=== PATIENT | male | born 1985 | race Caucasian/White ===

== ENCOUNTER 2019-01-15 19:23 | Emergency (ER) | payer SELFPAY ==
[~2019-01-15] VITALS: Ht 180.3 cm; Wt 77.0 kg
[2019-01-15] MEDS ORDERED: CEPH-572 PO (20:01)
[2019-01-15] MEDS ORDERED: SULF1TAB49 PO (20:01)
[2019-01-15 20:11] VITALS: BP 172/98
== END 2019-01-15 20:12 | disposition home or self-care (01) ==
LOC: ER 19:23
DX: M79.644 Pain in right finger(s) (principal); Z88.5 Allergy status to narcotic agent; Z79.2 Long term (current) use of antibiotics; Z79.899 Other long term (current) drug therapy
CPT/HCPCS: 99283

== ENCOUNTER 2019-03-28 23:26 | Emergency (ER) | payer SELFPAY ==
[~2019-03-28] VITALS: Ht 180.3 cm; Wt 65.0 kg
[2019-03-29] MEDS ORDERED: LIDOcaine 1% w/EPI 1:200,000 injection 10mL vial IM ONE (00:30)
[2019-03-29] MEDS ORDERED: LIDOcaine 1% W/epiNEPHrine 1:100,000 20ml vial IJ ONE (00:40)
[2019-03-29 01:41] VITALS: BP 149/94
[2019-03-29] MEDS ORDERED: HYDR-3965 PO (01:43)
[2019-03-29] MEDS ORDERED: SULF1TAB49 PO (01:43)
[2019-03-29] MEDS ORDERED: CEPH500C5 PO (01:43)
== END 2019-03-29 01:50 | disposition home or self-care (01) ==
LOC: ER 23:33
DX: N49.2 Inflammatory disorders of scrotum (principal); Z88.5 Allergy status to narcotic agent; Z79.899 Other long term (current) drug therapy
CPT/HCPCS: 54700; 99284

== ENCOUNTER 2019-05-21 15:28 | Emergency (ER) | payer MEDICAID, OTHER ==
[~2019-05-21] VITALS: Ht 180.3 cm; Wt 75.7 kg
[2019-05-21 15:47] VITALS: BP 133/93
[2019-05-21] MEDS ORDERED: ketorolac tromethamine 15mg/ml inj. IM ONE (17:15)
[2019-05-21] MEDS ORDERED: IBUP-1984 PO (17:21)
== END 2019-05-21 17:53 | disposition home or self-care (01) ==
LOC: ER 15:28
DX: M25.462 Effusion, left knee (principal); Z98.890 Other specified postprocedural states; Z88.5 Allergy status to narcotic agent; Z79.899 Other long term (current) drug therapy; X50.1XXA Overexertion from prolonged static or awkward postures, initial encounter; Y93.89 Activity, other specified; Y92.89 Other specified places as the place of occurrence of the external cause; Y99.8 Other external cause status
CPT/HCPCS: 29505; 73564; 96372; 99283; J1885

== ENCOUNTER 2019-11-14 08:47 | Emergency (ER) | payer MEDICARE, MEDICAID ==
[~2019-11-14] VITALS: Ht 182.9 cm; Wt 49.1 kg
[~2019-11-14 08:47] MED LIST: LIDOcaine 1% W/epiNEPHrine 1:100,000 20ml vial ONE
[2019-11-14 08:48] VITALS: BP 151/102
[2019-11-14] MEDS ORDERED: TETanus/Pertussis (Acell)/Diphther VAC/PF (Tdap-Adult) 0.5ml syringe IMVAC ONE (10:45)
[2019-11-14] MEDS ORDERED: SULF-15 PO (11:38)
== END 2019-11-14 11:48 | disposition home or self-care (01) ==
LOC: ER 08:47
DX: L02.11 Cutaneous abscess of neck (principal); Z98.890 Other specified postprocedural states; Z88.5 Allergy status to narcotic agent; Z79.2 Long term (current) use of antibiotics
CPT/HCPCS: 10060; 90471; 90715; 99283; 99284

== ENCOUNTER 2022-12-25 13:39 | Emergency (ER) | payer BC, MEDICAID ==
[~2022-12-25] VITALS: Ht 182.9 cm; Wt 79.5 kg
[2022-12-25 14:21] VITALS: BP 166/101
[2022-12-25] MEDS ORDERED: HYDROcodone/acetaminophen 5mg/325mg tablet PO ONE (14:35)
[2022-12-25] MEDS ORDERED: LIDOcaine 1% W/epiNEPHrine 1:100,000 20ml vial IJ ONE (14:35)
[2022-12-25] MEDS ORDERED: bacitracin 15gm ointment TP ONE (14:35)
[2022-12-25] MEDS ORDERED: HYDR-3965 PO (17:03)
[2022-12-25] MEDS ORDERED: CEPH-585 PO (17:03)
== END 2022-12-25 17:34 | disposition home or self-care (01) ==
LOC: ER 13:39
DX: L02.411 Cutaneous abscess of right axilla (principal); Z88.5 Allergy status to narcotic agent
CPT/HCPCS: 10060; 99283; A6266; A6449

== ENCOUNTER 2023-02-14 16:33 | Emergency (ER) | payer BC, MEDICAID ==
[~2023-02-14] VITALS: Ht 182.9 cm; Wt 82.7 kg
[~2023-02-14 16:33] MED LIST changes: +CEPH-585 PO; -LIDOcaine 1% W/epiNEPHrine 1:100,000 20ml vial ONE
[2023-02-14 16:48] VITALS: BP 146/89; PULSE 104; RESP 20; TEMP 98.6; O2SAT 96
[2023-02-14] MEDS ORDERED: CEPH-585 PO (17:26)
[2023-02-14] MEDS ORDERED: SULF1TAB49 PO (17:26)
== END 2023-02-14 17:48 | disposition home or self-care (01) ==
LOC: ER 16:33
DX: L02.412 Cutaneous abscess of left axilla (principal); Z88.5 Allergy status to narcotic agent; Z79.2 Long term (current) use of antibiotics
CPT/HCPCS: 99283

== ENCOUNTER 2023-11-02 17:55 | Emergency (ER) | payer BC, MEDICAID ==
[~2023-11-02] VITALS: Ht 177.8 cm; Wt 67.0 kg
[2023-11-02] MEDS ORDERED: BENCRM TOP (18:18)
[2023-11-02] MEDS ORDERED: KEN0.1O TOP (18:18)
[2023-11-02] MEDS ORDERED: PRED20TA PO (18:18)
[2023-11-02] MEDS ORDERED: DIPH25CA83 PO (18:18)
[2023-11-02] MEDS: famotidine 20mg tablet PO ONE (18:52)
[2023-11-02] MEDS: diphenhydrAMINE 50 mg/ml inj IM ONE (18:53)
[2023-11-02] MEDS: dexamethasone sod phosphate 10mg/ml inj IM STA (18:53)
[2023-11-02 19:02] VITALS: BP 132/86; PULSE 85; RESP 19; TEMP 98; O2SAT 98
== END 2023-11-02 19:03 | disposition home or self-care (01) ==
LOC: ER 17:56
DX: L23.7 Allergic contact dermatitis due to plants, except food (principal); Z88.5 Allergy status to narcotic agent; Z79.2 Long term (current) use of antibiotics
CPT/HCPCS: 96372; 99284; J1100; J1200

== ENCOUNTER 2023-11-16 09:54 | Emergency (ER) | payer BC, MEDICAID ==
[~2023-11-16] VITALS: Ht 180.3 cm; Wt 84.0 kg
[~2023-11-16 09:54] MED LIST changes: +BENCRM TOP; +DIPH25CA83 PO
[2023-11-16] MEDS: CefTRIAXone 2gm/D5W 50ml BAG 50 ML IV ONE (15:35)
[2023-11-16 15:49] LABS: BASOPHILS % (AUTO) 0.3 % (0-1); EOSINOPHILS # (AUTO) 0.6 X10'3 (0-0.9); HEMATOCRIT 40.2 % (42.0-52.0); HEMOGLOBIN 13.5 g/dl (14.0-17.9); LYMPHOCYTES # (AUTO) 0.9 X10'3 (1.1-4.8); LYMPHOCYTES % (AUTO) 8.2 % (21-51); MEAN CORPUSCULAR HEMOGLOBIN 29.1 PG (27.0-31.0); MEAN CORPUSCULAR HGB CONC 33.5 g/dL (33.0-36.5); MEAN CORPUSCULAR VOLUME 86.8 FL (78-98); MEAN PLATELET VOLUME 8.1 FL (7.4-10.4); MONOCYTES # (AUTO) 1.1 X10'3 (0-0.9); NEUTROPHILS # (AUTO) 8.7 X10'3 (1.8-7.7); NEUTROPHILS % (AUTO) 76.5 % (42-75); PLATELET COUNT 213 X10'3 (140-440); RED BLOOD COUNT 4.63 X10'6 (4.70-6.10); RED CELL DISTRIBUTION WIDTH 15.3 % (11.5-14.5); WHITE BLOOD COUNT 11.4 X10'3 (4.5-11.0)
[2023-11-16 16:18] LABS: ALBUMIN 2.9 G/DL (3.4-5.0); ANION GAP 1 (8-16); BLOOD UREA NITROGEN 9 MG/DL (7-18); BUN/CREATININE RATIO 8.9 (10.0-20.0); CALCIUM 8.4 MG/DL (8.5-10.1); CHLORIDE 101 MMOL/L (99-107); CREATININE 1.01 MG/DL (0.60-1.10); GLUCOSE 75 MG/DL (70-104); MAGNESIUM 2.3 MG/DL (1.5-2.4); POTASSIUM 4.1 MMOL/L (3.5-5.1); PRO BRAIN NATRIURETIC PEPTIDE 35 PG/ML (0-125); SODIUM 135 MMOL/L (135-145); TOTAL CARBON DIOXIDE 33.2 MMOL/L (24-32); eCRCL 104 ML/MIN; eGFR 82 ML/MIN
[2023-11-16 16:34] LABS: BILIRUBIN,URINE NEGATIVE (Neg); CLARITY,URINE SLIGHTLY CLOUDY (Clear); COLOR,URINE YELLOW (Yellow); GLUCOSE, URINE 100 mg/dl (Neg); KETONES,URINE NEGATIVE (Neg); LEUKOCYTE ESTERASE ,URINE MODERATE (Neg); NITRITES, URINE POSITIVE (Neg); OCCULT BLOOD,URINE NEGATIVE (Neg); PH,URINE 6.5 (4.8-8.0); PROTEIN,URINE TRACE mg/dl (Neg)
[2023-11-16 16:46] LABS: UA COLLECTION TYPE CLN CATCH MIDSTREAM
[2023-11-16 16:56] LABS: SQUAMOUS EPITHELIAL CELL,UR NONE SEEN /LPF (FEW); WBC,URINE TNTC /HPF (0-4)
[2023-11-16 16:57] LABS: WBC CLUMPS,URINE FEW /HPF (NEGATIVE)
[2023-11-16 17:00] LABS: BACTERIA,URINE 4+ /HPF (Neg); RBC,URINE NONE SEEN /HPF (0-2)
[2023-11-16 17:08] LABS: URINE AMPHETAMINE SCREEN POSITIVE (Neg); URINE BARBITUATE SCREEN NEGATIVE (Neg); URINE BENZODIAZEPINES SCREEN NEGATIVE (Neg); URINE CANNABINOID SCREEN NEGATIVE (Neg); URINE COCAINE SCREEN NEGATIVE (Neg); URINE METHADONE SCREEN NEGATIVE (Neg); URINE OPIATE SCREEN NEGATIVE (Neg); URINE PHENCYCLIDINE SCREEN NEGATIVE (Neg)
[2023-11-16] MEDS ORDERED: CEPH250T PO (17:51)
[2023-11-16] MEDS ORDERED: METR375C2 PO (17:51)
[2023-11-16] MEDS: CefTRIAXone/D5W-Rocephin 1gm 50 ML IV ONE (18:06)
[2023-11-16] MEDS: azithromycin 250mg tablet PO ONE (18:06)
[2023-11-16 18:15] VITALS: BP 154/72; PULSE 86; RESP 18; TEMP 98.2; O2SAT 99
== END 2023-11-16 18:19 | disposition home or self-care (01) ==
LOC: ER 09:54
DX: F15.10 Other stimulant abuse, uncomplicated (principal); A46 Erysipelas; N39.0 Urinary tract infection, site not specified; Z88.8 Allergy status to other drugs, medicaments and biological substances
CPT/HCPCS: 36415; 71045; 80048; 80305; 81001; 83605; 83735; 83880; 84145; 84484; 85025; 87040; 87077; 87088; 87186; 93005; 96365; 96376; 99285; J0696; 96366

== ENCOUNTER 2024-12-11 20:30 | Emergency (ER) | payer BC, MEDICAID ==
[~2024-12-11] VITALS: Ht 177.8 cm; Wt 73.3 kg
[~2024-12-11 20:30] MED LIST changes: -CEPH-585 PO; +METR375C2 PO
[2024-12-11 20:32] VITALS: BP 133/88; PULSE 99; RESP 16; TEMP 98.1; O2SAT 96
[2024-12-11] MEDS ORDERED: PRED20TA PO (22:00)
--- NOTE | 2024-12-11 22:00 | Physician Documentation ---
History of Present Illness ~ Chief Complaint: Rash Stated Complaint: POISON OAK Time Seen by MD: 21:56 Primary Medical Doctor: [facility] This is a 39-year-old male who presents with patchy rash to multiple areas of his body after working in poison oak today, patient reports history of allergy to poison oak. Patient reports rashes to all areas of body including genitalia though excluding face. Medication Reconciliation Allergies: Coded Allergies: morphine (Verified Allergy, Unknown, MY BODY SWELLS UP, 12/11/24) Scheduled Diphenhydramine Hcl (Benadryl), 1 CAP PO HS Diphenhydramine Hcl/Zinc Acet (Benadryl 2% Cream), 1 APPLIC TOP Q8H Metronidazole (Flagyl), 1 CAP PO Q12H Prednisone* (Prednisone*), 3 TAB PO DAILY Past Medical History Past Medical History: No Pertinent History Past Surgical History: orthopedic surgeries Alcohol Use: None Drug Use: none Lives with: Family Lives In: Home Occupation: employed Review of Systems ROS Rash as stated above in the HPI, otherwise all systems are reviewed and negative. Physical Exam Vital Signs: Temperature: 98.1, Source: Temporal, Heart Rate: 99, Respiratory Rate: 16, BP: 133/88, Pulse Oximetry: 96, Weight: 73.300 Oxygen Flow Rate: 0 Physical Exam VITALS: Reviewed and as above. GENERAL: Alert, nontoxic appearing, no apparent distress. RESPIRATORY: No increased work of breathing, no respiratory distress, speaking in full clear sentences SKIN: Patches of papular raised pruritic rash to bilateral arms, bilateral legs, and trunk Progress Results/Orders Results/Orders Vital Signs 12/11/24 20:32 Temp 98.1 Pulse 99 Resp 16 B/P (MAP) 133/88 Pulse Ox 96 O2 Flow Rate 0 Medical Decision Making Findings This 39-year-old male presented with a rash to his limbs and trunk consistent with poison oak dermatitis after contact with poison oak earlier today. There is no evidence of rapidly progressing symptoms, crepitus, pain out of proportion, pain away from site or other signs/symptoms concerning for necrotizing fasciitis or myositis. No mucosal involvement, blisters or bullae, sloughing skin, or appearance concerning for SJS, TEN, SSSS, pemphigus vulgaris, or bullous pemphigoid. No airway compromise, angioedema or systemic signs/symptoms concerning for anaphylaxis. Given involvement of multiple areas of the body including the genitalia patient will be started on short course of oral steroids. Patient is otherwise well- appearing and appropriate for outpatient follow up. Patient given strict return precautions including rapidly progressing symptoms, pain out of proportion/severe pain, mucosal involvement, and/or fever>100.4. Differential Dx:Considerations: Include: Abscess, Contact dermatitis, Drug reaction, Erysipelas, Herpes zoster, Herpes simplex, Psoriaisis, Scabies, Urtic aria, Viral exanthema Departure Disposition: HOME / SELF CARE / HOMELESS Impression: Primary Impression: Poison oak dermatitis Condition: Improved Discharge Instructions: Poison [place] Dermatitis, [id number] Additional Instructions: Please take the prescribed prednisone. Please see the home care instructions for poison oak dermatitis. Please follow up with your primary care provider in the next few days. Please return to the emergency department for any new or worsening concerning symptoms. Referrals: NO PRIMARY CARE PROVIDER (PCP) Prescriptions Prednisone* (Prednisone*) 20 Mg Tablet 3 TAB PO DAILY, #15 TAB Prov: JUNIE TABARES 12/11/24 Education Educated: Patient Educated regarding: diagnosis, treatment, prognosis, need for follow up Signature Scribe Signature: No scribe Attestation: The note accurately reflects work and decisions made by me.SONIA Nicholas 12/12/24 03:28 JUNIE TABARES Dec 11, 2024 22:00
== END 2024-12-11 22:14 | disposition home or self-care (01) ==
LOC: ER 20:31
DX: L23.7 Allergic contact dermatitis due to plants, except food (principal); Z88.5 Allergy status to narcotic agent
CPT/HCPCS: 99283